=== PATIENT | male | born 1955 | race African-American/Black ===

== ENCOUNTER 2020-02-02 02:08 | Inpatient (IN) | payer MEDICARE, OTHER ==
[2020-02-02] MEDS ORDERED: Ondansetron PF 4 MG/2 ML Vial ONE (02:24)
--- NOTE | 2020-02-02 03:35 | PDOC.FPRHP ---
- History of Present Illness Chief Complaint: seizure, sirs, r/o covid History of Present Illness: PCP: Ese Reji Parra is a 64 year old M with a PMH of HTN, Hx of CVA, Intellectual disability, Hx of kidney stones, IBS who was transferred from [facility] ED for seizure, sirs and r/o COVID. Pt unable to provide any significant history. History provided by MEGHANN and Cammie Card, pts aunt and caregiver. She states late last night, she saw pt standing at restroom door staring into space. He screamed and she noticed his right arm was jerking and then he fell to the floor and his entire body started to jerk. This episode lasted approximately 4- 5 min and EMS was called. After episode resolved, she noticed pt has small amount of blood in mouth and he was more confused and less able to communicate with her compared to his baseline. Once EMS arrived and patient was put on stretcher, he screamed again and had another 2 minute episode of full body shaking. Cammie did not think that he has ever had a seizure episode before but did state that in November 2019, she heard him scream similar to tonight and found in him on the floor and he was confused. He had urinary incontinence at that time. She took him to the ER and he was complaining of back pain and he had an L5 fracture at that time but possible seizure was not considered then. Cammie states that he has been in his usual state of health. He has had no complaints of late. Denies Reji having any fevers, chills, chest pain, cough, dyspnea, lightheadedness, headache, neck pain, vision changes, n/v, abdominal pain. They have been practicing prudent social distancing and have not been leaving the house. They have had no exposures to anyone positive for coronavirus or any other sick contacts. In the [facility] ED, he presented with a T of 100.6. He was noted to have a WBC count of 19.8 (71.9% PMNs and 20.9% lymphocytes (L)) and a Lactic acid >13.4. He was slightly tachycardic at 118 and slightly tachypneic at 22. Sepsis work up was started and he was given 2 L NS and Vancomycin and Zosyn, as well as Zofran. LP was not performed at either ED. - Allergies/Adverse Reactions Allergies Allergy/AdvReac Type Severity Reaction Status Date / Time lisinopril Allergy Verified 02/02/20 05:08 - Home Medications Medication Instructions Recorded Confirmed Type ALPRAZolam [Xanax] 0.25 mg PO BID 02/02/20 02/02/20 History Allopurinol [Zyloprim] 300 mg PO DAILY 02/02/20 02/02/20 History Dicyclomine [Bentyl] 20 mg PO TID 02/02/20 02/02/20 History Metoprolol/Hydrochlorothiazide 1 tab PO BID 02/02/20 02/02/20 History [Metoprolol-Hctz 50-25 mg Tab] Perphenazine [Trilafon] 6 mg PO Q8H 02/02/20 02/02/20 History Potassium Citrate [Urocit K] 10 meq PO TID 02/02/20 02/02/20 History tiZANidine HCl [Tizanidine HCl] 2 mg PO Q8H PRN 02/02/20 02/02/20 History traMADol HCl [Tramadol HCl] 50 mg PO Q6HR PRN 02/02/20 02/02/20 History - History PMHx: hx of kidney stones, hx of CVA, HTN, Anxiety, Intellectual disability, left eye blindness, 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 PSHx: cholecystectomy FHx: unknown Social: denies smoking, alcohol, drug use - Review of Systems ROS unobtainable: other (provided by pt to a degree and his aunt/caregiver with whom he lives) General: denies: fever/chills, weight/appetite/sleep changes, night sweats, fatigue Eyes: denies: vision changes ENT: denies: nasal congestion, rhinorrhea Respiratory: denies: cough, congestion, shortness of breath Cardiovascular: denies: chest pain, palpitation, edema Gastrointestinal: denies: nausea, vomiting, diarrhea, abdominal pain Genitourinary: denies: dysuria Skin: denies: rashes, lesions Musculoskeletal: reports: pain (back pain since L5 fracture), other (ambulates with cane at home) Neurological: reports: seizure. denies: numbness, syncope, weakness Psychological: reports: anxiety - Vital signs BP: 128/77 HR: 92 RR: 23 Tmax: 99.3 Pox: 98% on RA Wt: 94 kg - Physical Exam Constitutional: NAD, well developed -Constitutional: A&OX1 HEENT: normocephalic and atraumatic, EOMI -HEENT: right pupil round and reactive to light, left eye old scarring Neck: supple, FROM (no nuchal rigidity), no LAD -Neck: negative brudzinski Chest: no-tender to palpation, no lesions Heart: normal S1/S2, no murmurs/rubs/gallops, pulses present, no edema -Heart: tachycardic Lungs: CTAB, no respiratory distress, good air movement, no rales/rhonchi, no wheezing, no retractions Abdomen: soft, bowel sounds present, other (diffuse mild tenderness, no guarding or rigidity) Musculoskeletal: normal structure, normal tone, ROM grossly normal Neurological: no focal deficit, CN II-XII intact -Neurological: difficult to assess due to lack of cooperation/understanding Skin: no rash/lesions, capillary refill <2 seconds Heme/Lymphatic: no unusual bruising or bleeding, no purpura, no petechia Psychiatric: other (able to answer yes no questions, otherwise difficulty to assess) FMR H&P: Results - Labs Result Diagrams: 02/02/20 05:35 02/02/20 05:35 Lab results: Lactic Acid 3.0 mmol/L (0.5-2.2) H 02/02/20 02:48 - EKG Interpretation EKG: not done in either ED - Radiology Interpretation CT scan - head Status: image reviewed by me, report reviewed by me (enlarged deneen cisterna magna, no acute findings) Chest x-ray Status: image reviewed by me, report reviewed by me (no acute intrathoracic findings) FMR H&P: A/P - Problem List (1) Seizure Current Visit: Yes Status: Acute Code(s): R56.9 - UNSPECIFIED CONVULSIONS (2) SIRS (systemic inflammatory response syndrome) Current Visit: Yes Status: Acute Code(s): R65.10 - SIRS OF NON-INFECTIOUS ORIGIN W/O ACUTE ORGAN DYSFUNCTION (3) Elevated lactic acid level Current Visit: Yes Status: Acute Code(s): R79.89 - OTHER SPECIFIED ABNORMAL FINDINGS OF BLOOD CHEMISTRY (4) Hx of renal calculi Current Visit: Yes Status: Acute Code(s): Z87.442 - PERSONAL HISTORY OF URINARY CALCULI (5) SKYLER (acute kidney injury) Current Visit: Yes Status: Acute Code(s): N17.9 - ACUTE KIDNEY FAILURE, UNSPECIFIED (6) Intellectual disability Current Visit: Yes Status: Acute Code(s): F79 - UNSPECIFIED INTELLECTUAL DISABILITIES (7) Hypertension Current Visit: Yes Status: Acute Code(s): I10 - ESSENTIAL (PRIMARY) HYPERTENSION (8) History of CVA (cerebrovascular accident) Current Visit: Yes Status: Acute Code(s): Z86.73 - PRSNL HX OF TIA (TIA), AND CEREB INFRC W/O RESID DEFICITS (9) Anxiety Current Visit: Yes Status: Acute Code(s): F41.9 - ANXIETY DISORDER, UNSPECIFIED - Plan 1) New Onset Seizure - 2 episodes lasting 5 min and 2 min, witnessed by caregiver - likely had episode in Nov 2019 - takes perphenazine and tramadol at home which increases risk of seizure - met SIRS criteria in ED with tachycardia, tachypnea, fever, and WBC count and sepsis work up started, no LP done - started on empiric Vanc and Zosyn - lactic acid of >13.4 in [facility], downtrended to 7 then 3 after fluids - s/p 2 L NS, vitals stable and wnl at [facility] ED - CT brain showed no acute findings - normal BUN, calcium - influenza negative - checking AM cortisol, TSH, Mag, Procal - seizure precautions - Ordered MRI brain and will consult Neurology in AM - prn ativan for seizure 2) COVID r/o - [facility] ERMD ordered COVID test due to SIRS - normal CXR, no respiratory symptoms - airborne, droplet and contact precautions until test results 3) SKYLER - baseline Cr around 1.6-1.7 - urine Na and Cr to calc FENa - s/p 2 L NS - continue mIVFs 4) elevated lactic acid - initial >13.4, downtrended to 7 and 3 after 2 L NS - possibly due to seizure 5) HTN - continue home antihypertensives - monitor BPs 6) History of kidney stones - UA showed blood - continue to monitor 7) Anxiety - continue home xanax VTE PPx: Lovenox Code status: DNAR, confirmed with his aunt and caregiver Dispo: Admitted to inpatient stroke for new onset seizures. Condition is stable. Anticipate hospital stay >48 hours. Will continue to work up new onset seizures and consult neurology. Addendum - Attending - Attending Attestation Date/Time: 02/02/20 6370 I personally evaluated the patient and discussed the management with Dr. Parsons. I agree with the History, Examination, Assessment and Plan documented above with any addition or exceptions noted below. Patient here for new onset seizures, very low concern for COVID. He will need Keppra, Neuro, MRI, EEG, but most of that has to be put on hold at this time until COVID swab results. Seizure precautions. Infection workup but holding further abx at this time. Initial fever and lactate elevation 2/2 seizure activity.
[2020-02-02] MEDS ORDERED: Sodium Chloride 0.9% 1,000 ML IV SCH (03:49)
[2020-02-02] MEDS ORDERED: Ondansetron ODT 4 MG TAB SL PRN (03:49)
[2020-02-02] MEDS ORDERED: Ondansetron PF 4 MG/2 ML Vial IVP PRN (03:49)
[2020-02-02] MEDS ORDERED: Acetaminophen 325 MG TAB PO PRN (03:49)
[2020-02-02] MEDS ORDERED: HYDROcodone/Acetaminophen 5/325 mg Tablet PO PRN ×2 (03:49)
[2020-02-02] MEDS ORDERED: Senokot S 8.6-50 MG TAB PO PRN (04:02)
[2020-02-02] MEDS ORDERED: Lorazepam 2 MG/ML VIAL SLOW IVP PRN (04:56)
[2020-02-02] MEDS ORDERED: Piperacillin/Tazobactam 4.5 GM in Sodium Chloride 0.9% 100 ML IVPB SCH (06:00)
[2020-02-02 06:02] LABS: Lactic Acid 2.1 mmol/L (0.5-2.2)
[2020-02-02 06:05] LABS: #Lymphocytes 1.3 thou/uL (1.20-3.40); #Monocytes 0.6 thou/uL (0.11-0.59); #Neutrophils 11.9 thou/uL (1.40-6.50); %Basophils 0.2 % (0.0-1.0); %Eosinophils 0.2 % (0.0-10.0); %Lymphocytes 9.1 % (21.0-51.0); %Monocytes 4.5 % (0.0-10.0); Hemoglobin 11.8 g/dL (14.0-18.0); Mean Corpuscular HGB CONC 33.5 g/dL (32.0-36.0); Mean Corpuscular Hemoglobin 28.4 pg (27.0-31.0); Mean Corpuscular Volume 84.6 fL (78.0-98.0); Mean Platelet Volume 7.5 fL (7.4-10.4); Platelet Count 253 thou/uL (130-400); RBC Distribution Width 12.5 % (11.5-14.5); Red Blood Cell (RBC) Count 4.16 mill/uL (4.70-6.10); White Blood Cell (WBC) Count 13.8 thou/uL (4.8-10.8)
[2020-02-02 06:07] LABS: Anion Gap 12 mmol/L (10-20); BUN (Urea Nitrogen) 16 mg/dL (8.4-25.7); Calc. Creatinine Clearance 61 mL/min (70-130); Calcium 8.8 mg/dL (7.8-10.44); Carbon Dioxide 25 mmol/L (23-31); Chloride 106 mmol/L (98-107); Estimated GFR-MDRD 54; Glucose 115 mg/dL (80-115); Magnesium 2.1 mg/dL (1.6-2.6); Potassium 3.1 mmol/L (3.5-5.1); Sodium 140 mmol/L (136-145)
[2020-02-02] MEDS: Lactated Ringer's 1,000 ML IV SCH ×3 (06:39→23:27)
[2020-02-02 07:39] LABS: Creatinine, Urine 87.76 mg/dL (63-166)
[2020-02-02] MEDS ORDERED: Potassium Chloride 20 MEQ TAB PO SCH (08:00)
[2020-02-02] MEDS ORDERED: Enoxaparin Sodium 30 MG/0.3 ML SYRINGE SC SCH (09:00)
[2020-02-02] MEDS ORDERED: Vancomycin HCl 1 GM in Sodium Chloride 0.9% 250 ML 300 ML IVPB SCH (09:00)
--- NOTE | 2020-02-02 09:34 | PDOC.BPN ---
- Brief Progress Note UPDATE on plan: Patient unable to get EEG or MRI until COVID results. Will place order to get these done post results. Will start patient on keppra due to recent seizure activity and high likelihood of having another seizure. Neurology consulted and appreciate recommendations. TSH labs pending. Will stop abx as patient has no sign/source of infection - afebrile, procal negative.
[2020-02-02] MEDS ORDERED: levETIRAcetam 500 MG TAB PO SCH (09:45)
[2020-02-02] MEDS: Allopurinol 300 MG TAB PO SCH (10:33)
[2020-02-02] MEDS: Hydrochlorothiazide 25 MG TAB PO SCH ×2 (10:33→21:17)
[2020-02-02] MEDS: Dicyclomine 20 MG TAB PO SCH ×3 (10:33→21:17)
[2020-02-02] MEDS: Enoxaparin Sodium 40 MG/0.4 ML SYRINGE SC SCH (10:34)
[2020-02-02] MEDS: Metoprolol Tartrate 50 MG TAB PO SCH ×2 (10:34→21:17)
[2020-02-02] MEDS: ALPRAZolam 0.25 MG TAB PO SCH ×2 (10:34→21:17)
[2020-02-02 12:07] VITALS: BMI 28.8
--- NOTE | 2020-02-02 12:26 | CON ---
DATE OF TELENEUROLOGY CONSULTATION: 02-02-2020 CHIEF COMPLAINT: Seizure. HISTORY OF PRESENT ILLNESS: History was mostly obtained from the chart since the patient was unable to give much details on his medical history. The patient is a 64-year-old man with hypertension, history of CVA, intellectual disability, and comes in with a history of seizure and rule out COVID protocol was initiated. He was reported to have seen with his aunt last night, and he was standing at the restroom door, staring into space, screamed, and jerked on the right side and then fell to the floor and had a whole generalized seizure episode lasted 4 to 5 minutes, and EMS was called, and the patient had a small amount of blood in his mouth and he was confused, less able to communicate from his baseline. He had another event after EMS arrived. The patient's family did not think he ever had a seizure, but in November 2019, he had a similar scream and he was on the floor and confused. He had urinary incontinence at that time, and he had back pain and L5 fracture from that fall. At that visit, seizure was not considered. The patient has not been sick per the chart, but he was noted to have elevated white count and tachycardia, and sepsis workup was started and he was given normal saline, vancomycin, Zosyn, and Zofran. No LP was performed. Source of infection unclear at this time. He is being tested for COVID. ALLERGIES: HE IS ALLERGIC TO LISINOPRIL. MEDICATIONS: At home, he takes: 1. Alprazolam. 2. Allopurinol. 3. Dicyclomine. 4. Metoprolol. 5. Perphenazine. 6. Potassium citrate. 7. Tizanidine. 8. Tramadol. PREVIOUS MEDICAL HISTORY: History of kidney stone, CVA, hypertension, anxiety, intellectual disability, left eye blindness, and glaucoma. PREVIOUS SURGICAL HISTORY: Cholecystectomy. FAMILY HISTORY: None relevant per chart. SOCIAL HISTORY: He lives with his family. He lives with his aunt mainly. REVIEW OF SYSTEMS: PULMONARY: Negative for shortness of breath or cough. GI: Negative for nausea, vomiting, or diarrhea. NEUROLOGICAL: Positive for seizure. OPHTHALMOLOGIC: Positive for old injury to his left eye and blindness in the left eye. ENT: Normal. DERMATOLOGIC: No recent skin rash. HEMATOLOGICAL: No bleeding diathesis. LABORATORY DATA: Lab workup: White count 13.8, hemoglobin 11.8, hematocrit 35.2, platelets 253. Chemistry: Sodium 140, potassium 3.1, chloride 106, bicarb 25, BUN 16, creatinine 1.57, glucose 115. Lactic acid 3. LDH pending. TSH 0.1848. Liver functions: AST 14, ALT 16, alkaline phosphatase 99, albumin 4.4, protein 7.3, globulin 2.9. Triglycerides 108, cholesterol 161, lipase 30. PTH 54.9, procalcitonin 0.1. LDL 90, HDL 49. His urinalysis was abnormal with moderate blood and elevated protein. Blood gases were within normal limits. IMAGING STUDIES: MRI is pending at this time. He had a head CT performed at another facility in [place] and did not show any abnormalities other than extensive chronic microangiopathic changes, no acute hemorrhage, enlarged deneen cisterna magna. PHYSICAL EXAMINATION: VITAL SIGNS: Temperature 97.3, pulse 77, respiratory rate 20, O2 sats 100%, blood pressure 129/64. CHEST: Not examined due to contact precautions observed by RN accompanying me on this telemedicine visit. CARDIAC: Not examined due to contact precautions observed by RN accompanying me on this telemedicine visit. NEUROLOGICAL: Higher intellectual function. The patient was not oriented to time, but oriented to place. He knows he is at [facility]. Cranial nerves 2 through 12, left eye blindness and corneal opacity. Pupil is normal on the right side. Normal sensation of face. Normal hearing bilaterally. No facial asymmetry. Normal elevation of palate. Tongue midline. Motor examination: Bulk normal, tone normal, strength 5-/5 throughout, which could be his baseline or general deconditioning. Muscle groups tested are deltoid, biceps, triceps, wrist extension and flexion, finger extension and flexion bilaterally. Sensory examination normal to touch bilaterally. Cerebellar, normal [id number], [id number]. Deep tendon reflexes 2+ throughout. IMPRESSION: The patient is a 64-year-old man with previous medical history of hypertension and a stroke. The patient has developed sudden-onset recent seizures, and he had 2 seizures since 01/31 and was brought to the hospital. At this time , his examination is normal except for loss of orientation to time, which may be his baseline. His examination is most consistent with relatively normal neurological examination and prior intellectual impairment. At this time, his diagnosis is most likely acute-onset seizure disorder. Further imaging of the brain would help us understand if there is any seizure focus. RECOMMENDATIONS: MRI of the brain and EEG. I agree with Keppra, which is currently being given to the patient, and we can keep him at a dose of 500 mg b.i.d. The patient will need neurology followup when he leaves the hospital. Please call me if you have any further questions. Job ID: [id number] MTDD
[2020-02-02] MEDS ORDERED: Vancomycin 1 GM in Premix Bag 1 BAG IVPB SCH (13:00)
[2020-02-02] MEDS ORDERED: Vancomycin 1.5 GRAM/300 ML BAG 1.5 GM in Premix Bag 1 BAG IVPB SCH (17:00)
[2020-02-02] MEDS ORDERED: Prevnar 13-Val Conj/PF 0.5 ML SYRINGE IM ONE (21:00)
[2020-02-02] MEDS: levETIRAcetam 500 MG TAB PO SCH (21:17)
[2020-02-03 06:29] LABS: Anion Gap 16 mmol/L (10-20); BUN (Urea Nitrogen) 11 mg/dL (8.4-25.7); Calc. Creatinine Clearance 84 mL/min (70-130); Calcium 8.8 mg/dL (7.8-10.44); Carbon Dioxide 22 mmol/L (23-31); Chloride 104 mmol/L (98-107); Estimated GFR-MDRD 72; Glucose 92 mg/dL (80-115); Potassium 3.4 mmol/L (3.5-5.1); Sodium 139 mmol/L (136-145)
--- NOTE | 2020-02-03 06:49 | PDOC.FM ---
- Subjective Subjective: NAEO. Patient resting comfortably in bed. Patient endorses back pain on the left. Patient has been ambulating in the room, tolerating PO. Patient denies any vision changes, headaches, fever, chills, seizure activity. No concerns per nursing. - Objective MAR Reviewed: Yes Vital Signs & Weight: Vital Signs (12 hours) Temp Pulse Resp BP BP Pulse Ox 02/03/20 04:06 97.5 F L 72 18 124/79 96 02/02/20 23:30 97.2 F L 71 16 130/67 96 02/02/20 19:35 96.2 F L 81 18 129/62 95 Weight Admit Weight 96.162 kg Weight 96.57 kg I&O: 02/01/20 02/02/20 02/03/20 06:59 06:59 06:59 Intake Total 480 Output Total 650 Balance -170 Result Diagrams: 02/02/20 05:35 02/03/20 06:11 Phys Exam - Physical Examination Constitutional: NAD HEENT: moist MMs, sclera anicteric left eye old scarring, unable to fully examine Neck: supple, full ROM Respiratory: clear to auscultation bilateral Cardiovascular: RRR Gastrointestinal: soft, non-tender, no distention, positive bowel sounds Musculoskeletal: no edema mild TTP in left paraspinous muscles Neurological: non-focal, moves all 4 limbs Psychiatric: normal affect Skin: no rash, normal turgor, cap refill <2 seconds Dx/Plan (1) SKYLER (acute kidney injury) Code(s): N17.9 - ACUTE KIDNEY FAILURE, UNSPECIFIED Status: Acute (2) History of CVA (cerebrovascular accident) Code(s): Z86.73 - PRSNL HX OF TIA (TIA), AND CEREB INFRC W/O RESID DEFICITS Status: Acute (3) Hypertension Code(s): I10 - ESSENTIAL (PRIMARY) HYPERTENSION Status: Acute (4) Intellectual disability Code(s): F79 - UNSPECIFIED INTELLECTUAL DISABILITIES Status: Acute (5) SIRS (systemic inflammatory response syndrome) Code(s): R65.10 - SIRS OF NON-INFECTIOUS ORIGIN W/O ACUTE ORGAN DYSFUNCTION Status: Acute (6) Seizure Code(s): R56.9 - UNSPECIFIED CONVULSIONS Status: Acute - Plan Plan: New Onset Seizure Per caregiver hx 2 episodes lasting 5 min and 2 min, witnessed. Likely additional episode in Nov 2019. Takes perphenazine and tramadol at home which increases risk of seizure. CT brain showed no acute findings. - MRI and EEG order placed - unable to obtain until COVID results. - Will start Keppra 500 BID. - Neurology consulted, appreciate recommendations. Patient will need to follow up with neuro outpatient - Seizure precautions - PRN ativan for seizure SIRS Met SIRS criteria in ED with tachycardia, tachypnea, fever, and WBC count and sepsis work up started, no LP done. - s/p Vanc/Zosyn which was discontinued. Procal negative. No infectious source. COVID r/o Amna ZAVALETA ordered COVID test due to SIRS. Low suspicion for this. - Normal CXR, no respiratory symptoms. Influenza negative. - Airborne, droplet and contact precautions until test results SKYLER Baseline Cr around 1.6-1.7 - s/p 2 L NS - PO hydration Elevated lactic acid - Initial >13.4, downtrended to 7 and 3 after 2 L NS. Likely due to seizure. HTN - Continue home antihypertensives - Monitor BPs History of kidney stones - UA showed blood - Continue to monitor Anxiety - continue home xanax VTE PPx: Lovenox Code status: DNAR, confirmed with his aunt and caregiver Dispo: Condition is stable. Anticipate hospital stay >48 hours. Awaiting COVID results to proceed with MRI and EEG. Patient will f/u with Neuro outpatient. Case discussed with Dr. Herrera. Addendum - Attending - Attending Attestation Date/Time: 02/03/20 1024 I personally evaluated the patient and discussed the management with Dr. Alvarez. I agree with the History, Examination, Assessment and Plan documented above with any addition or exceptions noted below. Patient stable. Awaiting negative COVID result so we can begin workup for new onset seizures. Needs MRI, EEG. On Keppra BID, new RX. Neuro has evaluated.
[2020-02-03] MEDS ORDERED: Potassium Chloride 20 MEQ TAB PO SCH (07:00)
[2020-02-03] MEDS: levETIRAcetam 500 MG TAB PO SCH ×2 (08:49→20:55)
[2020-02-03] MEDS: Enoxaparin Sodium 40 MG/0.4 ML SYRINGE SC SCH (08:49)
[2020-02-03] MEDS: Metoprolol Tartrate 50 MG TAB PO SCH ×2 (08:49→20:54)
[2020-02-03] MEDS: ALPRAZolam 0.25 MG TAB PO SCH ×2 (08:49→20:55)
[2020-02-03] MEDS: Allopurinol 300 MG TAB PO SCH (08:49)
[2020-02-03] MEDS: Dicyclomine 20 MG TAB PO SCH ×3 (08:49→20:55)
[2020-02-03] MEDS: Hydrochlorothiazide 25 MG TAB PO SCH ×2 (08:49→20:54)
[2020-02-03] MEDS: Lactated Ringer's 1,000 ML IV SCH (08:50)
[2020-02-03 11:32] LABS: #Eosinphils 0.1 thou/uL (0.0-0.7); #Lymphocytes 1.6 thou/uL (1.20-3.40); #Monocytes 0.6 thou/uL (0.11-0.59); %Basophils 0.4 % (0.0-1.0); %Eosinophils 0.8 % (0.0-10.0); %Lymphocytes 15.6 % (21.0-51.0); %Monocytes 5.4 % (0.0-10.0); %Neutrophils 77.8 % (42.0-75.0); Hemoglobin 12.1 g/dL (14.0-18.0); Mean Corpuscular HGB CONC 32.4 g/dL (32.0-36.0); Mean Corpuscular Hemoglobin 27.3 pg (27.0-31.0); Mean Corpuscular Volume 84.2 fL (78.0-98.0); Mean Platelet Volume 7.3 fL (7.4-10.4); Platelet Count 229 thou/uL (130-400); RBC Distribution Width 12.7 % (11.5-14.5); Red Blood Cell (RBC) Count 4.44 mill/uL (4.70-6.10); White Blood Cell (WBC) Count 10.3 thou/uL (4.8-10.8)
--- NOTE | 2020-02-04 07:42 | PDOC.FM ---
- Subjective Subjective: Pt fell overnight to his knees. Care was delayed 2/2 COVID-19 precautions. Pt is not complaining of any joint pain today. He does complain of some adboimal pain, but denies nausea, vomiting. He denies SOB or cough. - Objective MAR Reviewed: Yes Vital Signs & Weight: Vital Signs (12 hours) Temp Pulse Resp BP BP BP Pulse Ox 02/04/20 05:00 97.6 F 75 18 148/81 H 97 02/03/20 23:36 98.0 F 78 16 133/85 95 02/03/20 20:10 98.3 F 75 20 145/83 H 94 L 02/03/20 20:00 95 02/03/20 19:51 98 F 81 16 137/84 96 Weight Admit Weight 96.162 kg Weight 96.57 kg I&O: 02/03/20 02/04/20 02/05/20 06:59 06:59 06:59 Intake Total 480 Output Total 650 Balance -170 Result Diagrams: 02/03/20 11:23 02/03/20 06:11 Phys Exam - Physical Examination Constitutional: NAD HEENT: moist MMs Neck: no JVD Respiratory: no wheezing, no rales, clear to auscultation bilateral Cardiovascular: RRR, no significant murmur Gastrointestinal: soft, no distention, positive bowel sounds Diffuse tenderness to palpation Musculoskeletal: no edema, pulses present Neurological: moves all 4 limbs Cranial nerves 2-12 grossly intact Psychiatric: normal affect Dx/Plan (1) SKYLER (acute kidney injury) Code(s): N17.9 - ACUTE KIDNEY FAILURE, UNSPECIFIED Status: Acute (2) Elevated lactic acid level Code(s): R79.89 - OTHER SPECIFIED ABNORMAL FINDINGS OF BLOOD CHEMISTRY Status : Acute (3) Intellectual disability Code(s): F79 - UNSPECIFIED INTELLECTUAL DISABILITIES Status: Acute (4) SIRS (systemic inflammatory response syndrome) Code(s): R65.10 - SIRS OF NON-INFECTIOUS ORIGIN W/O ACUTE ORGAN DYSFUNCTION Status: Acute (5) Seizure Code(s): R56.9 - UNSPECIFIED CONVULSIONS Status: Acute - Plan Plan: This is a 64 yo male with a pmh of ID, HTN, IBS, previous CVA New onset seizures -Currently on Keppra 500mg BID -No LP done despite SIRS criteria -CT brain shows no acute findings -Neurology consulted -Pending MRI and EEG after COVID-19 r/o COVID-19 r/o -Pending Covid testing, stable labs otherwise, CXR normal SKYLER -Improving -FeNa >1, suggesting intrinsic process Elevated lactate, down trending HTN -Continue home meds Hx of kidney stones Anxiety -Continue home meds Addendum - Attending - Attending Attestation Date/Time: 02/04/20 1440 I personally evaluated the patient and discussed the management with Dr. Mirza. I agree with the History, Examination, Assessment and Plan documented above with any addition or exceptions noted below. Awaiting COVID result. If negative, then MRI and EEG. Dispo pending results of further workup. No seizure events in hospital.
[2020-02-04] MEDS: Dicyclomine 20 MG TAB PO SCH ×3 (08:18→22:31)
[2020-02-04] MEDS: Enoxaparin Sodium 40 MG/0.4 ML SYRINGE SC SCH (08:18)
[2020-02-04] MEDS: ALPRAZolam 0.25 MG TAB PO SCH ×2 (08:18→22:31)
[2020-02-04] MEDS: Allopurinol 300 MG TAB PO SCH (08:18)
[2020-02-04] MEDS: levETIRAcetam 500 MG TAB PO SCH ×2 (08:18→22:31)
[2020-02-04] MEDS: Metoprolol Tartrate 50 MG TAB PO SCH ×2 (08:18→22:30)
[2020-02-04] MEDS: Hydrochlorothiazide 25 MG TAB PO SCH ×2 (08:18→22:30)
--- NOTE | 2020-02-05 07:12 | PDOC.FM ---
- Subjective Subjective: NAEO. Nursing reports he did well. He denies any needs this morning. He does report abdominal pain this morning and states it has been a while since he had a BM. - Objective MAR Reviewed: Yes Vital Signs & Weight: Vital Signs (12 hours) Temp Pulse Resp BP BP Pulse Ox 02/05/20 03:03 97.6 F 72 18 117/79 96 02/04/20 22:31 98.7 F 87 18 126/81 98 Weight Admit Weight 96.162 kg Weight 96.57 kg I&O: 02/04/20 02/05/20 02/06/20 06:59 06:59 06:59 Intake Total 200 Output Total 400 Balance -200 Result Diagrams: 02/03/20 11:23 02/05/20 07:26 Phys Exam - Physical Examination HEENT: moist MMs Neck: no JVD Respiratory: no wheezing, clear to auscultation bilateral Cardiovascular: RRR, no significant murmur Gastrointestinal: soft, no distention, positive bowel sounds diffuse TTP Musculoskeletal: no edema, pulses present Neurological: moves all 4 limbs Skin: cap refill <2 seconds Dx/Plan (1) SKYLER (acute kidney injury) Code(s): N17.9 - ACUTE KIDNEY FAILURE, UNSPECIFIED Status: Acute (2) Elevated lactic acid level Code(s): R79.89 - OTHER SPECIFIED ABNORMAL FINDINGS OF BLOOD CHEMISTRY Status : Acute (3) Intellectual disability Code(s): F79 - UNSPECIFIED INTELLECTUAL DISABILITIES Status: Acute (4) SIRS (systemic inflammatory response syndrome) Code(s): R65.10 - SIRS OF NON-INFECTIOUS ORIGIN W/O ACUTE ORGAN DYSFUNCTION Status: Acute (5) Seizure Code(s): R56.9 - UNSPECIFIED CONVULSIONS Status: Acute - Plan Plan: This is a 64 yo male with a pmh of ID, HTN, IBS, previous CVA New onset seizures -Currently on Keppra 500mg BID -No LP done despite SIRS criteria -CT brain shows no acute findings -Neurology consulted -Pending MRI and EEG, Covid negative COVID-19, negative SKYLER -Improving -FeNa >1, suggesting intrinsic process -Repeat BMP today Elevated lactate, down trending HTN -Continue home meds Hx of kidney stones Anxiety -Continue home meds Addendum - Attending - Attending Attestation Date/Time: 02/05/20 5860 I personally evaluated the patient and discussed the management with Dr. Mirza I agree with the History, Examination, Assessment and Plan documented above with any addition or exceptions noted below. COVID neg. MRI and EEG today. Dispo pending results.
[2020-02-05 07:57] LABS: Anion Gap 13 mmol/L (10-20); BUN (Urea Nitrogen) 17 mg/dL (8.4-25.7); Calc. Creatinine Clearance 75 mL/min (70-130); Calcium 9.5 mg/dL (7.8-10.44); Carbon Dioxide 25 mmol/L (23-31); Chloride 101 mmol/L (98-107); Estimated GFR-MDRD 63; Glucose 101 mg/dL (80-115); Potassium 3.7 mmol/L (3.5-5.1); Sodium 135 mmol/L (136-145)
[2020-02-05] MEDS: ALPRAZolam 0.25 MG TAB PO SCH ×2 (10:25→21:48)
[2020-02-05] MEDS: Dicyclomine 20 MG TAB PO SCH ×3 (10:25→21:48)
[2020-02-05] MEDS: Allopurinol 300 MG TAB PO SCH (10:25)
[2020-02-05] MEDS: Enoxaparin Sodium 40 MG/0.4 ML SYRINGE SC SCH (10:25)
[2020-02-05] MEDS: Metoprolol Tartrate 50 MG TAB PO SCH ×2 (10:26→21:48)
[2020-02-05] MEDS: Hydrochlorothiazide 25 MG TAB PO SCH ×2 (10:26→21:48)
[2020-02-05] MEDS: Polyethylene Glycol 3350 17 GM Packet PO SCH (10:26)
[2020-02-05] MEDS: levETIRAcetam 500 MG TAB PO SCH ×2 (10:26→21:48)
--- NOTE | 2020-02-05 10:39 | MRI ---
MRI BRAIN WITH AND WITHOUT IV CONTRAST: HISTORY: Seizure disorder. FINDINGS: There are multiple foci of T2 prolongation in the periventricular white matter consistent with chroni c small-vessel ischemic disease. 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 There is an enlarged posterior fossa with torcular-lambdoid inver dick. The torcula is high-lying due to an abnormally high tentorium. There are small foci of low signal on the gradient echo sequences consistent with hemosiderin deposit ion and old hemorrhages. No restricted diffusion is seen. No evidence of acute infarct, acute hemorrhage, mass, or midline sh ift is seen. No abnormal postcontrast enhancement is noted. There is mild mucosal disease in the pa ranasal sinuses. IMPRESSION: 1. Chronic changes. No evidence of acute intracranial process or mass. 2. 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 POS: [facility]
[2020-02-05] MEDS ORDERED: Atorvastatin Calcium 40 MG TAB PO SCH (21:00)
[2020-02-05] MEDS ORDERED: Acetaminophen 500 MG TAB PO PRN (22:21)
[2020-02-05] MEDS ORDERED: Ketorolac Tromethamine 30 MG/ML VIAL IVP SCH (22:30)
--- NOTE | 2020-02-06 06:23 | PDOC.FM ---
- Subjective Subjective: NAEO. He denies any needs at this time. - Objective MAR Reviewed: Yes Vital Signs & Weight: Vital Signs (12 hours) Temp Pulse Resp BP Pulse Ox 02/06/20 04:18 98.1 F 69 16 99/57 L 95 02/05/20 23:47 99.1 F 74 20 110/78 97 02/05/20 19:05 99.2 F 89 16 113/75 98 Weight Admit Weight 96.162 kg Weight 96.57 kg I&O: 02/04/20 02/05/20 02/06/20 06:59 06:59 06:59 Intake Total 200 1100 Output Total 400 930 Balance -200 170 Result Diagrams: 02/03/20 11:23 02/06/20 10:16 Phys Exam - Physical Examination Constitutional: NAD Resting at time of visit HEENT: moist MMs Neck: no JVD Respiratory: no wheezing, clear to auscultation bilateral Cardiovascular: RRR, no significant murmur Gastrointestinal: soft, no distention, positive bowel sounds Musculoskeletal: no edema, pulses present Neurological: moves all 4 limbs Skin: cap refill <2 seconds Dx/Plan (1) SKYLER (acute kidney injury) Code(s): N17.9 - ACUTE KIDNEY FAILURE, UNSPECIFIED Status: Acute (2) Elevated lactic acid level Code(s): R79.89 - OTHER SPECIFIED ABNORMAL FINDINGS OF BLOOD CHEMISTRY Status : Acute (3) Intellectual disability Code(s): F79 - UNSPECIFIED INTELLECTUAL DISABILITIES Status: Acute (4) SIRS (systemic inflammatory response syndrome) Code(s): R65.10 - SIRS OF NON-INFECTIOUS ORIGIN W/O ACUTE ORGAN DYSFUNCTION Status: Acute (5) Seizure Code(s): R56.9 - UNSPECIFIED CONVULSIONS Status: Acute - Plan Plan: This is a 64 yo male with a pmh of ID, HTN, IBS, previous CVA New onset seizures -Currently on Keppra 500mg BID -No LP done despite SIRS criteria -CT brain shows no acute findings -Neurology consulted -Pending EEG, Covid negative -MRI negative for acute changes COVID-19, negative SKYLER -Improving -FeNa >1, suggesting intrinsic process Elevated lactate, down trending HTN -Continue home meds Hx of kidney stones Anxiety -Continue home meds Addendum - Attending - Attending Attestation Date/Time: 02/06/20 1232 I personally evaluated the patient and discussed the management with Dr. Mirza. I agree with the History, Examination, Assessment and Plan documented above with any addition or exceptions noted below. EEG today. If negative, then d/c with outpatient neurology f/u. Need f/u BMP in 1 week to monitor renal function.
[2020-02-06] MEDS ORDERED: Aspirin 81 mg Enteric Coated Tablet PO SCH (09:00)
[2020-02-06] MEDS ORDERED: Lidocaine 5% Patch TD SCH (09:00)
[2020-02-06 11:17] LABS: Anion Gap 14 mmol/L (10-20); BUN (Urea Nitrogen) 21 mg/dL (8.4-25.7); Calc. Creatinine Clearance 68 mL/min (70-130); Calcium 9.7 mg/dL (7.8-10.44); Carbon Dioxide 28 mmol/L (23-31); Chloride 99 mmol/L (98-107); Estimated GFR-MDRD 56; Glucose 115 mg/dL (80-115); Potassium 3.8 mmol/L (3.5-5.1); Sodium 137 mmol/L (136-145)
[2020-02-06] MEDS: Allopurinol 300 MG TAB PO SCH (11:29)
[2020-02-06] MEDS: levETIRAcetam 500 MG TAB PO SCH (11:29)
[2020-02-06] MEDS: Hydrochlorothiazide 25 MG TAB PO SCH (11:29)
[2020-02-06] MEDS: ALPRAZolam 0.25 MG TAB PO SCH (11:29)
[2020-02-06] MEDS: Enoxaparin Sodium 40 MG/0.4 ML SYRINGE SC SCH (11:30)
[2020-02-06] MEDS: Polyethylene Glycol 3350 17 GM Packet PO SCH (11:30)
[2020-02-06] MEDS: Metoprolol Tartrate 50 MG TAB PO SCH (11:30)
[2020-02-06] MEDS: Dicyclomine 20 MG TAB PO SCH ×2 (11:34→16:18)
--- NOTE | 2020-02-06 11:53 | PDOC.HOSPP ---
- Subjective Encounter Date: 02/06/20 Subjective: Patient is alert to person only. No seizures since admission. EEG negative for seizure activity. - Objective Vital Signs & Weight: Vital Signs (12 hours) Temp Pulse Resp BP BP Pulse Ox 02/06/20 08:00 99.2 F 82 16 116/76 99 02/06/20 04:18 98.1 F 69 16 99/57 L 95 Weight Admit Weight 212 lb Weight 212 lb 14.4 oz I&O: 02/05/20 02/06/20 02/07/20 06:59 06:59 06:59 Intake Total 200 1100 Output Total 400 930 Balance -200 170 Result Diagrams: 02/03/20 11:23 02/06/20 10:16 Radiology Reviewed by me: Yes EKG Reviewed by me: Yes Hospitalist ROS - Review of Systems Constitutional: denies: fever, chills, sweats, weakness, malaise, other Eyes: denies: pain, vision change, conjunctivae inflammation, eyelid inflammation, redness, other ENT: denies: ear pain, ear discharge, nose pain, nose discharge, nose congestion , mouth pain, mouth swelling, throat pain, throat swelling, other Respiratory: denies: cough, dry, shortness of breath, hemoptysis, SOB with excertion, pleuritic pain, sputum, wheezing, other Cardiovascular: denies: chest pain, palpitations, orthopnea, paroxysmal noc. dyspnea, edema, light headedness, other Gastrointestinal: denies: nausea, vomiting, abdominal pain, diarrhea, constipation, melena, hematochezia, other Genitourinary: denies: dysuria, frequency, incontinence, hematuria, retention, other Musculoskeletal: denies: neck pain, shoulder pain, arm pain, back pain, hand pain, leg pain, foot pain, other Skin: denies: rash, lesions, boyd, bruising, other Neurological: reports: seizures - Medication Medications: Active Medications Generic Name Dose Route Start Last Admin Trade Name Freq PRN Reason Stop Dose Admin Allopurinol 300 mg 02/02/20 09:00 02/06/20 11:29 Zyloprim PO 300 mg DAILY CHUY Administration Alprazolam 0.25 mg 02/02/20 09:00 02/06/20 11:29 Xanax PO 0.25 mg BID CHUY Administration Aspirin 81 mg 02/06/20 09:00 02/06/20 11:29 Ecotrin PO 81 mg DAILY CHUY Administration Atorvastatin Calcium 40 mg 02/05/20 21:00 02/05/20 21:48 Lipitor PO 40 mg HS CHUY Administration Dicyclomine HCl 20 mg 02/02/20 09:00 02/06/20 11:34 Bentyl PO 20 mg TID CHUY Administration Enoxaparin Sodium 40 mg 02/02/20 09:00 02/06/20 11:30 Lovenox SC 40 mg 0900 CHUY Administration Hydrochlorothiazide 25 mg 02/02/20 09:00 02/06/20 11:29 Hydrochlorothiazide PO 25 mg BID CHUY Administration Levetiracetam 500 mg 02/02/20 21:00 02/06/20 11:29 Keppra PO 500 mg BID CHUY Administration Lidocaine 1 patch 02/06/20 09:00 02/06/20 11:30 Lidoderm 5% Patch TD 1 patch DAILY CHUY Administration Metoprolol Tartrate 50 mg 02/02/20 09:00 02/06/20 11:30 Lopressor PO 50 mg BID CHUY Administration Polyethylene Glycol 17 gm 02/05/20 09:00 02/06/20 11:30 Miralax PO 17 gm DAILY CHUY Administration Sodium Chloride 10 ml 02/02/20 09:00 02/06/20 11:34 Flush - Normal Saline IVF 10 ml Q12HR CHUY Administration - Exam General Appearance: awake alert Eye: PERRL, anicteric sclera ENT: normocephalic atraumatic, no oropharyngeal lesions, moist mucosa Neck: supple, symmetric, no JVD, no thyromegaly, no lymphadenopathy Heart: RRR, no murmur, no gallops, no rubs, normal peripheral pulses Respiratory: CTAB, no wheezes, no rales, no ronchi Gastrointestinal: soft Extremities: no cyanosis, no clubbing, no edema Skin: normal turgor, no lesions, no rashes Neurological: cranial nerve grossly intact, normal sensation to touch, no weakness, no focal deficits, no new deficit Musculoskeletal: normal tone Psychiatric: normal affect, oriented to person Hosp A/P (1) New onset seizure Code(s): R56.9 - UNSPECIFIED CONVULSIONS Status: Acute Plan: Continue Keppra 500 mg twice daily. Observe seizure precautions. Neurochecks every 4 hours. EEG reviewed which was negative for seizure activity. Continue home medications PT/OT Continue medical management per primary team. (2) Hypertension Code(s): I10 - ESSENTIAL (PRIMARY) HYPERTENSION Status: Acute Plan: Continue home medications (3) Intellectual disability Code(s): F79 - UNSPECIFIED INTELLECTUAL DISABILITIES Status: Acute - Plan PT/OT, social and human services assistant, speech therapy, DVT proph w/heparin
[2020-02-06 15:52] VITALS: BP 103/66; TEMP 99.1
--- NOTE | 2020-02-06 16:29 | EEG ---
Referring Physician: FADUMO FERRO EEG # [id number] TEST TYPE: EXTENDED 2 HOUR 5 MIN PORTABLE INPATIENT REPORT: This EEG was performed using 24 channel [employer] video digital EEG machine with 24 disc electrodes. This was an extended 2 hour 30 minute inpatient video EEG recording. Digital analysis of the EEG was done for spike and seizure detection which did not reveal any abnormalities BACKGROUND: The posterior background rhythm is 8.5 hertz. The background rhythm attenuates with eye opening and enhances with eye closure. HYPERVENTILATION: Could not be performed secondary to patient lack of cooperation. PHOTIC STIMULATION: Bioccipital symmetrical driving response is observed. SLEEP: Drowsiness and stage II sleep is briefly observed. EEG DIAGNOSIS: 1.) Occasional irregular theta activity seen during the recording. 2.) No sustained persistent background rhythm. CLINICAL INTERPRETATION: THIS EEG IS CONSISTENT WITH MILD GENERALIZED NONSPECIFIC CEREBRAL DYSFUNCTION. NO ICTAL OR INTERICTAL EPILEPTIFORM ABNORMALITIES SEEN DURING THE RECORDING. [] Business Operations Specialist: Installer Technician: [email or web address]
--- NOTE | 2020-02-06 18:44 | DIS ---
DATE OF ADMISSION: 02/02/2020 DATE OF DISCHARGE: 02/06/2020 ADMITTING ATTENDING: Dr. Jasen Herrera. DISCHARGING ATTENDING: Dr. Herbie Masters. RESIDENT: Pool Mirza DO CONSULTS: Dr. Emily Olmstead. PROCEDURES: EEG shows consistent with mild general nonspecific cerebral dysfunction. No ictal epileptiform abnormality seen during the recording. Brain MRI shows chronic changes. No evidence of acute intracranial process or mass. Findings suggested of Dandy-Walker malformation. PRIMARY DIAGNOSIS: New onset seizures. SECONDARY DIAGNOSES: Acute kidney injury, lactic acid, hypertension, history of kidney stones, , intellectual disability. DISCHARGE MEDICATIONS: 1. Atorvastatin 40 mg p.o. at bedtime. 2. Aspirin 81 mg p.o. daily. 3. Keppra 500 mg p.o. b.i.d. 4. Allopurinol 300 mg p.o. daily. 5. Xanax 0.25 mg p.o. b.i.d. 6. Dicyclomine 20 mg p.o. t.i.d. 7. Metoprolol/hydrochlorothiazide 50 mg/25 mg 1 p.o. b.i.d. 8. Perphenazine 6 mg p.o. q.8 hours. 9. Potassium citrate 10 p.o. t.i.d. 10. Tizanidine 2 mg p.o. q.8 hours. 11. Tramadol 50 mg p.o. q.6 hours p.r.n. pain. DISCONTINUED MEDICATIONS: None. BRIEF HISTORY OF PRESENT ILLNESS/HOSPITAL COURSE: A 64-year-old male with past medical history as above, who presents to the ER from [facility] to rule out new onset seizure and COVID rule out. The patient is a poor historian and the history was provided by ER doctor and his aunt and caregiver. Saw him standing in the room when he screamed, he had a seizure, this happened once again about 10 minutes with full body shaking. No formal seizures have been noted, but in November he had a scream and found a similar process, where he was confused and found on the floor. He had urinary incontinence at that time. The patient had no complaints while in the hospital. The patient was admitted for seizure rule out as well as COVID rule out. CT brain at outside facility shows no acute intracranial process. Chest x-ray shows mild tortuosity, no intrathoracic abnormalities. The patient's COVID came back negative. EEG and MRI done as above, not concerning for status epilepticus or recurring epileptic seizures. The patient was started on Keppra with no seizures during his hospital stay with plans to follow up as outpatient as well as with Dr. Mulligan. DISPOSITION: Stable. DISCHARGE INSTRUCTIONS: 1. Location: Home. 2. Diet: Heart healthy. 3. Activity: As tolerated. 4. Followup: Follow up with Neurology in 2 to [address] Mulligan in 1 to 2 weeks. Job ID: [id number]
== END 2020-02-06 17:21 | disposition home or self-care (01) | DRG 101 ==
LOC: ERS 02:08 → T4-A 02:37 → 2SW 06:27 → 2SE 02-05 20:38
PROVIDERS: ADMIT Emergency Medicine; ATTEND Emergency Medicine
PROC: 8E0ZXY6 Isolation (ICD-10-PCS; principal; 2020-02-02)
DX: G40.909 Epilepsy, unspecified, not intractable, without status epilepticus (principal); N17.9 Acute kidney failure, unspecified; C85.90 Non-Hodgkin lymphoma, unspecified, unspecified site; R65.10 Systemic inflammatory response syndrome (SIRS) of non-infectious origin without acute organ dysfunction; I10 Essential (primary) hypertension; F79 Unspecified intellectual disabilities; K58.9 Irritable bowel syndrome, unspecified; F41.9 Anxiety disorder, unspecified; H54.62 Unqualified visual loss, left eye, normal vision right eye; Z90.49 Acquired absence of other specified parts of digestive tract; Z87.442 Personal history of urinary calculi; Z86.73 Personal history of transient ischemic attack (TIA), and cerebral infarction without residual deficits
CPT/HCPCS: 36415; 70553; 80048; 82533; 82570; 83605; 83735; 84145; 84300; 84439; 84443; 84480; 85025; 95816; 95819; 96374; J1650; J1885; J2405; J2543; J3490